=== PATIENT | female | born 1995 | race Caucasian/White ===

== ENCOUNTER 2016-09-12 21:36 | Emergency (ER) | payer OTHER | END 2016-09-12 23:08 | disposition home or self-care (01) | LOC: ED 21:36 | DX: J06.9 Acute upper respiratory infection, unspecified (principal); S09.90XA Unspecified injury of head, initial encounter; S16.1XXA Strain of muscle, fascia and tendon at neck level, initial encounter; V49.40XA Driver injured in collision with unspecified motor vehicles in traffic accident, initial encounter; Y92.410 Unspecified street and highway as the place of occurrence of the external cause; Z79.3 Long term (current) use of hormonal contraceptives ==